=== PATIENT | male | born 1960 | race Caucasian/White ===

== ENCOUNTER 2018-04-15 12:30 | Observation (INO) | payer BC ==
[2018-04-15 13:31] LABS: Bilirubin Negative (Negative); Blood, Urine Negative (Negative); Clarity Clear (Clear); Glucose, Urine (Dipstick) Negative (Negative); Leukocyte Negative (Negative); Nitrite Negative (Negative); Protein, Urine (Dipstick) Negative (Neg-Trace); Specific Gravity, Urine 1.025 (1.005-1.030); Urobilinogen 0.2 mg/dL (0.2-1.0)
[2018-04-15 13:41] LABS: #Basophils 0.2 thou/uL (0.0-0.2); #Eosinphils 0.3 thou/uL (0.0-0.7); #Monocytes 1.3 thou/uL (0.11-0.59); #Neutrophils 6.9 thou/uL (1.40-6.50); %Basophils 1.5 % (0.0-1.0); %Eosinophils 2.7 % (0.0-10.0); %Lymphocytes 18.4 % (21.0-51.0); %Monocytes 12.4 % (0.0-10.0); %Neutrophils 65.1 % (42.0-75.0); Hemoglobin 16.9 g/dL (14.0-18.0); Mean Corpuscular HGB CONC 33.6 g/dL (32.0-36.0); Mean Corpuscular Hemoglobin 31.5 pg (27.0-31.0); Mean Corpuscular Volume 93.6 fL (78.0-98.0); Mean Platelet Volume 7.2 fL (7.4-10.4); Platelet Count 175 thou/uL (130-400); RBC Distribution Width 11.9 % (11.5-14.5); Red Blood Cell (RBC) Count 5.38 mill/uL (4.70-6.10); White Blood Cell (WBC) Count 10.7 thou/uL (4.8-10.8)
[2018-04-15 13:57] LABS: CKMB 0.7 ng/mL (0-6.6); Troponin I Less than 0.010 ng/mL (< 0.028)
[2018-04-15 13:58] LABS: ALT (SGPT) 11 U/L (8-55); AST (SGOT) 11 U/L (5-34); Albumin 4.2 g/dL (3.5-5.0); Alkaline Phosphatase 78 U/L (40-150); Anion Gap 12 mmol/L (10-20); BUN (Urea Nitrogen) 16 mg/dL (8.4-25.7); Bilirubin, Total 0.9 mg/dL (0.2-1.2); Calc. Creatinine Clearance 0 mL/min (70-130); Calcium 9.9 mg/dL (7.8-10.44); Carbon Dioxide 27 mmol/L (22-29); Chloride 104 mmol/L (98-107); Estimated GFR-MDRD 54; Glucose 92 mg/dL (70-105); Potassium 3.7 mmol/L (3.5-5.1); Protein, Total 7.2 g/dL (6.0-8.3); Sodium 139 mmol/L (136-145)
--- NOTE | 2018-04-15 14:11 | RAD ---
CHEST RADIOGRAPH SINGLE VIEW: History: Altered mental status. Comparison: 09-03-05 FINDINGS: There is no evidence of lobar consolidation, effusion, or discrete pneumothorax. Cardiomediastinal si lhouette is accentuated by portable technique. IMPRESSION: No focal consolidation. POS: TPC
--- NOTE | 2018-04-15 14:22 | CT ---
CT BRAIN WITHOUT CONTRAST: HISTORY: Altered mental status. COMPARISON: 06/01/2015 FINDINGS: No evidence of acute infarct, hemorrhage, midline shift, or abnormal extraaxial fluid collection is s een. The sellar/suprasellar mass seen on the exam of 06/01/2015 has been removed in the interim. Th ere is mucosal disease in the sphenoid sinuses. The ventricular size is appropriate, and the basilar cisterns are patent. The bony calvarium is intact. IMPRESSION: No CT evidence of acute intracranial process. POS: IKE
[2018-04-15 16:31] VITALS: BMI 28.5
[2018-04-15] MEDS ORDERED: Acetaminophen 325 MG TAB PO PRN (17:41)
[2018-04-15] MEDS ORDERED: Melatonin 3 MG TAB PO SCH (22:00)
--- NOTE | 2018-04-16 00:48 | HP ---
CHIEF COMPLAINT: Incomplete expressive aphasia. HISTORY: This patient is a 58-year-old male with significant past medical history notable for prior pituitary macroadenoma requiring transsphenoidal resection about 3 years ago. The patient also was a real estate leasing agent for many years and has subsequently developed some PTSD. The patient reports that he tends to have recurring images of police breaking into his door with him being on the receiving end o f that as that is what he did for many years as a real estate leasing agent. He has been followed by a psycholog ist and a psychiatrist by the name of Dr. Weinberg. He recently reported these symptoms and was st arted on Risperdal about 5 days ago which was a Friday. The patient took one that night and states h e did not remember much after about an hour. Apparently, he was running down the road naked, was libertad ke during the night, yelling at his home. He subsequently reported this back to Dr. Weinberg, who stopped the medication. The patient was in a group meeting today and was trying to speak and had sig nificant expressive aphasia. The patient does report that he has had difficulty with mild expressive aphasia since his original transsphenoidal pituitary macroadenoma resection 3 years ago. This, haines tamra, was worse than usual. He denies any other associated symptoms. He was told by someone at the [facility] that he needed to come to the hospital. He called his girlfriend who took him to [facility]. There, the patient underwent workup including CT scan of the brain w hich was unremarkable for any acute findings. They subsequently called his psychiatrist who really w anted him to be admitted. PAST MEDICAL HISTORY: Notable for hypertension, PTSD. PAST SURGICAL HISTORY: Knee surgery, colon resection secondary to perforation, multiple skin cancer lesions removed from his face including a large one from the left lower lip and he had the transsphen oidal pituitary macroadenoma resection. SOCIAL HISTORY: The patient quit smoking about 12 years ago. He denies alcohol or drugs. He is not , but has a serious girlfriend named Claribel. Claribel would be his surrogate decision maker sh ould the need become necessary. He is FULL CODE. ALLERGIES: None. CURRENT MEDICATIONS: Potassium 10 mEq daily, Imitrex p.r.n., Maxalt p.r.n., Phenergan p.r.n., Effexo r XR 300 mg every day, omeprazole 40 mg every day, Ambien 10 mg at bedtime, Cozaar 50 mg every day, TriCor 145 every day, Coreg 25 b.i.d., amitriptyline 100 at bedtime, hydrocortisone 5 mg p.o. b.i.d., and topiramate 150 mg every day. PHYSICAL EXAMINATION: VITAL SIGNS: Temperature 97.5, pulse 81, respirations 20, O2 saturation 94% on room air, BP 179/97. GENERAL APPEARANCE: Age appropriate male. He is in no distress. He is awake, alert, oriented, plea dayana, cooperative. HEENT: PERRL. No OP lesions. NECK: Supple and symmetric. CARDIOVASCULAR: Regular rate and rhythm without murmurs, gallops or rubs. LUNGS: Clear to auscultation bilaterally with good chest wall expansion and air exchange. ABDOMEN: Soft, nontender, nondistended, positive bowel sounds, no masses, no organomegaly. EXTREMITIES: Warm and dry with no cyanosis, clubbing or edema. NEUROLOGIC: The patient does occasionally stumble when trying to speak too fast and gets frozen with his speech, but is able to stop, slow down and redirect his speech and be very appropriate. He has a normal cranial nerve function, normal peripheral strength and function with no localization. He ap pears to have normal cerebellar function. A CT of the brain shows the prior sellar mass excision, but no acute findings. Chest x-ray is negati ve. IMPRESSION AND PLAN: 1. Expressive aphasia, possibly an exacerbation of the patient's chronic expressive aphasia secondar y to his prior transsphenoidal pituitary macroadenoma resection exacerbations likely brought on by e risperidone, which has caused him some significant neuropsychiatric side effects. We will continue to monitor the patient here on telemetry. We will get an echocardiogram, check his carotid Dopplers . We will reassess him tomorrow. May need to talk to Dr. Parker who did his prior surgery and ma amira sure we will need to do an MRI to make sure there is nothing new going on in the area of the pitui tary. 2. Hypertension. We will continue with the patient's usual home medications including the losartan and Coreg. 3. Posttraumatic stress disorder. Continue his usual home medication regimen. 4. The patient has hyperlipidemia secondary to his medication regimen, which includes a TriCor. We will continue with that.
[2018-04-16 06:15] LABS: #Basophils 0.1 thou/uL (0.0-0.2); #Eosinphils 0.3 thou/uL (0.0-0.7); #Lymphocytes 1.8 thou/uL (1.20-3.40); #Monocytes 1.1 thou/uL (0.11-0.59); #Neutrophils 5.1 thou/uL (1.40-6.50); %Eosinophils 3.8 % (0.0-10.0); %Lymphocytes 21.9 % (21.0-51.0); %Monocytes 12.6 % (0.0-10.0); %Neutrophils 60.7 % (42.0-75.0); Hemoglobin 16.4 g/dL (14.0-18.0); Mean Corpuscular HGB CONC 31.6 g/dL (32.0-36.0); Mean Corpuscular Hemoglobin 31.2 pg (27.0-31.0); Mean Corpuscular Volume 98.5 fL (78.0-98.0); Mean Platelet Volume 6.8 fL (7.4-10.4); Platelet Count 240 thou/uL (130-400); RBC Distribution Width 12.2 % (11.5-14.5); Red Blood Cell (RBC) Count 5.27 mill/uL (4.70-6.10); White Blood Cell (WBC) Count 8.4 thou/uL (4.8-10.8)
[2018-04-16 06:16] LABS: Anion Gap 11 mmol/L (10-20); BUN (Urea Nitrogen) 13 mg/dL (8.4-25.7); Calc. Creatinine Clearance 103 mL/min (70-130); Calcium 9.2 mg/dL (7.8-10.44); Carbon Dioxide 24 mmol/L (22-29); Chloride 104 mmol/L (98-107); Estimated GFR-MDRD 67; Glucose 95 mg/dL (70-105); Potassium 3.4 mmol/L (3.5-5.1); Sodium 136 mmol/L (136-145)
[2018-04-16] MEDS ORDERED: Potassium Chloride 10 MEQ TAB PO SCH (11:15)
[2018-04-16] MEDS ORDERED: Venlafaxine HCl XR 150 MG CAP PO SCH (11:15)
[2018-04-16] MEDS ORDERED: Carvedilol 25 MG TAB PO SCH ×2 (11:15→21:00)
[2018-04-16] MEDS ORDERED: Losartan 25 MG TAB PO SCH (11:15)
[2018-04-16] MEDS ORDERED: Hydrocortisone 10 mg Tablet PO SCH ×2 (11:15→21:00)
--- NOTE | 2018-04-16 12:27 | ULT ---
BILATERAL CAROTID DUPLEX ULTRASOUND: DATE: 04/16/18 HISTORY: 58-year-old male with TIA. FINDINGS: There is a small amount of plaque formation in the left common carotid artery. The peak systolic velocity in the right ICA measures 67 cm/second with an end-diastolic velocity of 2 5 cm/second and a systolic ratio of 0.91. The peak systolic velocity in the left ICA measures 68 cm/second with an end-diastolic velocity of 26 cm/second and a systolic ratio of 0.63. Flow in both vertebral arteries remains antegrade. IMPRESSION: No evidence of hemodynamically significant stenosis. POS: IKE
[2018-04-16 16:03] VITALS: BP 142/84; TEMP 98.6
[2018-04-16] MEDS ORDERED: Amitriptyline HCl 100 MG TAB PO SCH (21:00)
[2018-04-17] MEDS ORDERED: Potassium Chloride 10 MEQ TAB PO SCH (09:00)
[2018-04-17] MEDS ORDERED: TOPIRAMATE 150 MG PO SCH (09:00)
[2018-04-17] MEDS ORDERED: Losartan 25 MG TAB PO SCH (09:00)
[2018-04-17] MEDS ORDERED: Venlafaxine HCl XR 150 MG CAP PO SCH (09:00)
[2018-04-17] MEDS ORDERED: Fenofibrate Nanocrystallized 145 MG TAB PO SCH (09:00)
--- NOTE | 2018-04-17 14:49 | DIS ---
DATE OF ADMISSION: 04/15/2018 DATE OF DISCHARGE: 04/16/2018 DISCHARGE DIAGNOSES: 1. Expressive aphasia. 2. History of adverse reaction to medication. 3. Post-traumatic stress disorder. 4. History of pituitary macroadenoma, status post transsphenoidal excision. 5. Hypertension. 6. History of hyperlipidemia. HOSPITAL COURSE: The patient is a 58-year-old male who has a history of PTSD who is being treated by a psychologist and a psychiatrist. He was started on Risperdal after having some worsening of his P TSD symptoms. Subsequent to that, the patient had significant delirium and amnestic activity. He wa s seen again by his psychiatrist and his medications were discontinued. However, the following day, the patient was at a group meeting and when attempting to talk was having some problems with expressi ve aphasia. The patient reported that he had had some minor problems with that since he has had his pituitary macroadenoma extracted transsphenoidally. This, however, was worse than those symptoms. Paramjit stern called his psychiatrist and was referred to the emergency department. His workup there appeared to be unremarkable; however, she was concerned enough that she would prefer to have him admitted to the hospital. HOSPITAL COURSE: The patient's neurologic exam was largely unremarkable other than very minor word f inding difficulties and expressive aphasia at times, which was overcome when the patient would slow d own and speak more clearly. He had a CT scan of the brain that showed the prior sellar mass excision but nothing new. Labs were unremarkable. He was on telemetry, had no significant telemetry finding s. He had a carotid Doppler study which revealed no occlusive disease. He also had an echocardiogra m; however, the patient was completely back to his baseline and he and I both felt confident that thi s was residual effect from the Risperdal. With that, the patient was felt to be stable for discharge . PHYSICAL EXAMINATION: VITAL SIGNS: Temperature was 98.6, pulse 91, respirations 16, O2 sat 92% on room air, BP was 142/84. GENERAL: He was awake, alert, oriented, pleasant, cooperative. HEART: Regular rate and rhythm. LUNGS: Clear bilaterally. ABDOMEN: Soft, nontender, nondistended. Positive bowel sounds. EXTREMITIES: Warm and dry. NEUROLOGIC: The patient was intact with no focal deficits other than occasional mild stumbling over his words. He had been evaluated by speech therapy and recommended ongoing outpatient speech therapy . DISPOSITION: The patient is discharged to home. His activity is as tolerated. He has no dietary re strictions. DISCHARGE MEDICATIONS: He will be on his usual home medications including potassium, Imitrex, Maxalt , Phenergan, Effexor XR, omeprazole, Ambien, Cozaar, TriCor, carvedilol, Elavil, hydrocortisone, and Qudexy/topiramate XR. He is to follow up with Dr. Triston Genao in 7 days as well as a psychiatrist . He can return to the emergency department should he have any problems prior to that time. Reassur ed the patient that I would call him if anything abnormal showed up on his echocardiogram which did n ot. His EF was 60-65%, was only grade I diastolic dysfunction.
== END 2018-04-16 18:04 | disposition home or self-care (01) ==
LOC: SCSER 12:30 → 2SE 16:26
PROVIDERS: ADMIT Internal Medicine; ATTEND Internal Medicine
DX: R47.01 Aphasia (principal); F43.10 Post-traumatic stress disorder, unspecified; I10 Essential (primary) hypertension; E78.5 Hyperlipidemia, unspecified; Z86.011 Personal history of benign neoplasm of the brain; Z87.891 Personal history of nicotine dependence; Z79.52 Long term (current) use of systemic steroids; Z79.899 Other long term (current) drug therapy; Z90.49 Acquired absence of other specified parts of digestive tract; Z98.890 Other specified postprocedural states
CPT/HCPCS: 36415; 70450; 71045; 80048; 80053; 81003; 82553; 84484; 85025; 93005; 93306; 93880; G0378; G9165-GN-CK; G9166-GN-CJ

== ENCOUNTER 2018-06-26 10:03 | Outpatient (CLI) | payer BC, MEDICARE ==
--- NOTE | 2018-06-26 13:24 | MRI ---
MRI BRAIN WITH AND WITHOUT CONTRAST: INDICATIONS: Migraine with aura, intractable. FINDINGS: The ventricular system is normal in size. There is mild chronic microvascular ischemic disease of th e cerebral white matter. No evidence of acute territorial infarction or intracranial hemorrhagic lele ceptibility. Post surgical change of the sella is again demonstrated, demonstrating a partially empt y sella appearance. No interval mass recurrence within the sella turcica is demonstrated. There is no pathologic intraaxial enhancement. Opacification of the sphenoid sinus is present. IMPRESSION: 1. Postsurgical findings of the sella are again demonstrated. 2. No acute intracranial abnormalities. 3. Mild chronic microvascular ischemic disease. POS: TPC
== END 2018-06-26 10:04 | disposition home or self-care (01) ==
LOC: SCSMRI 10:03
PROVIDERS: ATTEND Nurse Practitioner Acute Care
DX: G43.119 Migraine with aura, intractable, without status migrainosus (principal); I67.82 Cerebral ischemia; Z98.890 Other specified postprocedural states
CPT/HCPCS: 70553; 82565

== ENCOUNTER 2019-06-21 16:16 | Observation (INO) | payer BC, MEDICARE ==
[~2019-06-21 16:16] MED LIST: ISOVUE-370 76%-LOCM 1 ML ONE
[2019-06-21 16:39] LABS: #Basophils 0.1 thou/uL (0.0-0.2); #Eosinphils 0.4 thou/uL (0.0-0.7); #Lymphocytes 2.3 thou/uL (1.20-3.40); #Monocytes 0.8 thou/uL (0.11-0.59); #Neutrophils 5.9 thou/uL (1.40-6.50); %Basophils 0.9 % (0.0-1.0); %Eosinophils 3.9 % (0.0-10.0); %Lymphocytes 24.4 % (21.0-51.0); %Monocytes 8.3 % (0.0-10.0); %Neutrophils 62.5 % (42.0-75.0); Hemoglobin 17.8 g/dL (14.0-18.0); Mean Corpuscular HGB CONC 34.1 g/dL (32.0-36.0); Mean Corpuscular Hemoglobin 33.8 pg (27.0-31.0); Mean Platelet Volume 6.5 fL (7.4-10.4); Platelet Count 243 thou/uL (130-400); RBC Distribution Width 12.4 % (11.5-14.5); Red Blood Cell (RBC) Count 5.28 mill/uL (4.70-6.10); White Blood Cell (WBC) Count 9.5 thou/uL (4.8-10.8)
--- NOTE | 2019-06-21 16:54 | RAD ---
Chest AP view INDICATION: Chest pain COMPARISON: April 15, 2018 FINDINGS: Lungs:The lungs are clear Cardiac silhouette:The cardiomediastinal silhouette appears within normal limits. Pulmonary vasculature:Normal Pleural spaces:No pleural effusion or pneumothorax is demonstrated. Upper abdomen:No abnormality seen. Osseous structures: No acute osseous abnormality. Additional findings:None. IMPRESSION: No acute cardiopulmonary abnormality.
[2019-06-21 17:00] LABS: ALT (SGPT) 16 U/L (8-55); AST (SGOT) 16 U/L (5-34); Albumin 4.1 g/dL (3.5-5.0); Alkaline Phosphatase 84 U/L (40-110); Anion Gap 14 mmol/L (10-20); BUN (Urea Nitrogen) 13 mg/dL (8.4-25.7); CK (CPK) 37 U/L (30-200); Calc. Creatinine Clearance 0 mL/min (70-130); Calcium 9.2 mg/dL (7.8-10.44); Carbon Dioxide 24 mmol/L (22-29); Chloride 102 mmol/L (98-107); Estimated GFR-MDRD 51; Globulin 2.8 g/dL (2.4-3.5); Glucose 112 mg/dL (70-105); Potassium 3.7 mmol/L (3.5-5.1); Protein, Total 6.9 g/dL (6.0-8.3); Sodium 136 mmol/L (136-145)
[2019-06-21] MEDS ORDERED: Aspirin Chewable 81 MG TAB ONE (17:26)
[2019-06-21] MEDS ORDERED: Nitroglycerin 2% Ointment 1 INCH/1 GM Packet ONE (17:26)
[2019-06-21] MEDS ORDERED: Morphine 4 MG/ML VIAL ONE (18:40)
[2019-06-21] MEDS ORDERED: Pantoprazole 40 MG VIAL ONE (18:40)
[2019-06-21] MEDS ORDERED: Nitroglycerin 0.4 MG TAB 1 EACH ONE (18:40)
[2019-06-21 19:55] LABS: Troponin I 0.016 ng/mL (< 0.028)
[2019-06-21] MEDS ORDERED: Acetaminophen 325 MG TAB PO PRN (20:35)
[2019-06-21] MEDS ORDERED: Acetaminophen 650 MG Suppository PR PRN (20:35)
[2019-06-21] MEDS ORDERED: Ondansetron PF 4 MG/2 ML Vial IVP PRN (20:35)
[2019-06-21] MEDS ORDERED: Ondansetron ODT 4 MG TAB PO PRN (20:35)
[2019-06-21] MEDS ORDERED: Famotidine/PF 20 mg/2ml Vial SLOW IVP SCH (21:00)
[2019-06-21 21:04] LABS: Lactic Acid 1.1 mmol/L (0.5-2.2)
[2019-06-21] MEDS ORDERED: Sodium Chloride 0.9% 1,000 ML IV SCH (21:15)
[2019-06-21 21:26] VITALS: BMI 30.1
--- NOTE | 2019-06-21 21:28 | CT ---
Exam: CT angiogram of the chest HISTORY: Shortness of breath. Chest pain. Symptoms since started one week ago. COMPARISON: None TECHNIQUE: CT angiogram of the chest is performed in the axial plane. Three-dimensional reformatted i mages are submitted for interpretation FINDINGS: Mediastinum: No mass, lymphadenopathy or hematoma. HEART: Normal size. No significant pericardial fluid. Aorta: No aneurysm or dissection Upper solid abdominal viscera: No abnormality enhancement. Trachea and central bronchi: Patent Pleural spaces: No effusion Lung parenchyma: No masses or consolidation. Scarring in the right lower lobe, lingula and dependent atelectatic changes in the lung bases are noted. Mild emphysematous changes in the lung apices. Pneumothorax: None Osseous structures: No lytic or blastic lesions Pulmonary arteries: Adequate contrast opacification pulmonary arterial system to the level of segment al arteries. No filling defect to suggest pulmonary embolism IMPRESSION: 1. No evidence of pulmonary artery embolism to the level of segmental arteries.
--- NOTE | 2019-06-21 21:45 | HP ---
TIME OF ASSESSMENT: 1999. CHIEF COMPLAINT: Midsternal chest pressure. HISTORY OF PRESENT ILLNESS: Mr. Hough is a pleasant 59-year-old gentleman with no known past medical history, who states he first developed pressure in the center of his chest one week ago, which he states was intermittent until this past Friday when it became constant. The patient states it has been at a level of 5/10 in severity and nonradiating. Does not seem to be made worse by anything in particular, but states his activity level has been limited due to difficulty taking in deep breaths as that exacerbates his chest pressure. The patient in fact states that he is unable to take a deep breath even if he wants to and states he feels like something is limiting his chest from expanding. Denies any recent cough or hemoptysis. No recent fevers or chills. Has not experienced any symptoms like this in the past. Has not had any associated diaphoresis, nausea, vomiting, lightheadedness, or dizziness. Denies any trauma. He last took a flight in March 2019 to [place]. Since then, he has not had any long car rides or long flights. Denies any lower leg swelling or edema. All other review of systems are negative. ED COURSE: In the emergency department, the patient underwent an EKG which showed sinus tachycardia with a heart rate of 104 and PACs with aberrant conduction per EKG report. There were no ST changes or T-wave abnormalities. He underwent a chest x-ray, which showed no acute intrathoracic abnormalities. The patient was noted to have an elevated blood pressure on presentation with a systolic of 197. He was treated with Protonix 40 mg IV, 4 mg of morphine, given nitroglycerin sublingual as well as 1 inch of Nitro-Bid. The patient has received 324 mg of aspirin and 500 mL of normal saline. His blood pressure has improved and is now 136/94. Laboratory studies obtained included an initial troponin, which was negative. Second troponin is normal at 0.016. Initial troponin was 0.025. Remaining laboratory studies were notable for creatinine of 1.41 and GFR of 51, which appears essentially stable compared to previous lab work done. Full blood count unremarkable. LFTs normal. PAST MEDICAL HISTORY: 1. History of pituitary tumor. 2. Skin cancer. 3. Hypertension. 4. Adrenal gland deficit. 5. Chronic migraines. 6. Posttraumatic stress disorder. PAST SURGICAL HISTORY: 1. Colon resection. 2. Right knee surgery. 3. Pituitary tumor removal. SOCIAL HISTORY: The patient lives alone. Denies any alcohol abuse. No illicit drug use. Reports prior smoking history, but quit 15 years ago. FAMILY HISTORY: Reports a family history of cardiac disease. His father had multiple MIs and triple bypass. PHYSICAL EXAMINATION: GENERAL: The patient appears well developed, well nourished, is in no acute distress. VITAL SIGNS: Temperature 98.2, pulse 90, blood pressure 136/94, respirations 18, O2 saturation 95% on room air. HEENT: Normocephalic and atraumatic. Pupils are equal, round, reactive to light. Sclerae without icterus. Oropharynx is clear. NECK: Supple without lymphadenopathy. LUNGS: Clear to auscultation bilaterally without any wheezes, rales, or rhonchi. CARDIAC: Regular rate and rhythm. No chest wall tenderness on palpation. ABDOMEN: Soft, nontender, and nondistended. Normoactive bowel sounds present. No guarding or rigidity. No renal angle tenderness. EXTREMITIES: No lower leg swelling or edema. No calf tenderness. NEUROLOGIC: Alert and oriented x3. No neuro deficits on exam. SKIN: Warm and dry. INVESTIGATIONS: As mentioned above in HPI. IMPRESSION AND PLAN: Mr. Hough is a pleasant 59-year-old gentleman, who is being admitted for management of the following. 1. Acute coronary syndrome rule out. The patient continues with pressure in his chest causing also difficulty with his breathing on exertion due to inability to take full deep breaths. The patient without any cough or hemoptysis. However, given tachycardia and recent travel, we will obtain a CT angiogram to rule out pulmonary embolism. He has had an echocardiogram in the past in April 2018, which showed an EF of 60% to 65% with grade 1/3 diastolic dysfunction, trace MR and mild TR. We will go ahead and repeat this since it has been over a year since last echo. The patient with PACs on the EKG. He will remain on continuous cardiac monitoring. We will likely place a consultation to Cardiology. The patient states he has never undergone a stress test in the past. We will continue to trend troponins. We will add on a TSH and magnesium. We will add BNP as well to his laboratory studies. 2. Hypertension. Monitor blood pressure and resume home medications once verified. 3. GI prophylaxis. Famotidine 20 mg b.i.d. 4. Deep venous thrombosis prophylaxis. Pending CT angiogram. 5. Code status full. Surrogate decision maker is his daughter, Marifer Hough. The patient's case discussed with attending, who agrees with plan of care as described above. Job ID: [id number]
[2019-06-21] MEDS ORDERED: Rizatriptan Benzoate 10 MG MLT TAB PO PRN (23:42)
[2019-06-21] MEDS ORDERED: Zolpidem Tartrate 5 MG TAB PO PRN (23:42)
[2019-06-21] MEDS ORDERED: SUMAtriptan Succinate 6 MG/0.5 ML VIAL SC PRN (23:42)
[2019-06-21] MEDS ORDERED: Venlafaxine HCl XR 150 MG CAP PO SCH (23:45)
[2019-06-21] MEDS ORDERED: Carvedilol 6.25 MG TAB PO SCH (23:45)
[2019-06-22 04:40] LABS: #Basophils 0.1 thou/uL (0.0-0.2); #Eosinphils 0.3 thou/uL (0.0-0.7); #Lymphocytes 2.3 thou/uL (1.20-3.40); #Neutrophils 4.8 thou/uL (1.40-6.50); %Basophils 1.3 % (0.0-1.0); %Eosinophils 3.7 % (0.0-10.0); %Lymphocytes 26.9 % (21.0-51.0); %Monocytes 11.2 % (0.0-10.0); %Neutrophils 56.9 % (42.0-75.0); Hemoglobin 16.3 g/dL (14.0-18.0); Mean Corpuscular Hemoglobin 32.8 pg (27.0-31.0); Mean Corpuscular Volume 99.4 fL (78.0-98.0); Mean Platelet Volume 6.5 fL (7.4-10.4); Platelet Count 223 thou/uL (130-400); RBC Distribution Width 12.5 % (11.5-14.5); Red Blood Cell (RBC) Count 4.96 mill/uL (4.70-6.10); White Blood Cell (WBC) Count 8.5 thou/uL (4.8-10.8)
[2019-06-22 04:58] LABS: Anion Gap 11 mmol/L (10-20); BUN (Urea Nitrogen) 13 mg/dL (8.4-25.7); Calc. Creatinine Clearance 86 mL/min (70-130); Calcium 8.5 mg/dL (7.8-10.44); Carbon Dioxide 27 mmol/L (22-29); Chloride 104 mmol/L (98-107); Estimated GFR-MDRD 53; Glucose 88 mg/dL (70-105); Potassium 3.8 mmol/L (3.5-5.1); Sodium 138 mmol/L (136-145)
[2019-06-22] MEDS ORDERED: hydrALAZINE 25 MG TAB PO SCH (08:00)
[2019-06-22] MEDS ORDERED: Aripiprazole 10 MG TAB PO SCH (09:00)
[2019-06-22] MEDS ORDERED: Famotidine 20 MG TAB PO SCH (09:00)
[2019-06-22] MEDS ORDERED: Bupropion 150 MG XL TAB PO SCH (09:00)
[2019-06-22] MEDS ORDERED: Hydrocortisone 10 mg Tablet PO SCH ×2 (09:00→15:00)
[2019-06-22] MEDS ORDERED: Aspirin 81 mg Enteric Coated Tablet PO SCH (09:00)
[2019-06-22] MEDS: Carvedilol 25 MG TAB PO SCH ×2 (09:13→10:03)
[2019-06-22] MEDS ORDERED: Ketorolac Tromethamine 30 MG/ML VIAL IVP SCH (09:30)
[2019-06-22 11:34] VITALS: BP 172/102; TEMP 98.1
--- NOTE | 2019-06-22 14:41 | CON ---
DATE OF CONSULTATION: HISTORY OF PRESENT ILLNESS: The patient is a 59-year-old gentleman with a history of hypertension, who presents with a 1-week history of continuous midsternal chest discomfort. The patient has no previous cardiac history. He states about a month ago, he started developing midsternal discomfort. This has been a persistent pain. It seems to be clearly worse when he takes a deep breath. The patient has no previous history of chest discomfort. The patient's cardiac risk factor is hypertension and a family history of heart disease. PAST MEDICAL HISTORY: 1. Pituitary tumor. 2. PTSD. 3. Hypertension. 4. Migraine headaches. PAST SURGICAL HISTORY: Colon surgery and knee surgery. SOCIAL HISTORY: Former smoker. FAMILY HISTORY: Positive family history of heart disease. ALLERGIES: RISPERIDONE. MEDICATION ON ADMISSION: See nursing list. REVIEW OF SYSTEMS: Unremarkable. PHYSICAL EXAMINATION: GENERAL: Obese gentleman, in no acute distress. VITAL SIGNS: With a blood pressure 149/91. NECK: Showed no jugular venous distention. LUNGS: Clear to auscultation. HEART: Regular rate and rhythm. Normal S1 and S2. No murmurs. ABDOMEN: Distended. EXTREMITIES: Showed no edema. VASCULAR: Radial pulse 2+. LABORATORY DATA: Sodium 138, potassium 3.8, chloride 104, bicarbonate 27, BUN 13, creatinine 1.38, and glucose 88. Troponin was 0.02 and BNP less than 10. EKG is pending. Echocardiogram revealed normal left ventricular ejection fraction 55% to 60% with no significant valvular regurgitation. IMPRESSION AND PLAN: 1. Chest pain, atypical, probably secondary to pleurisy. 2. Hypertension. 3. Obesity. 4. Family history of coronary artery disease. This gentleman presents with atypical chest pain. He has had discomfort persistently for the past week, and his cardiac enzymes are unremarkable. From a cardiac standpoint, we will start the patient on Toradol and nonsteroidal medication. We will follow this patient with you through his hospitalization. Job ID: [id number] [facility]
[2019-06-22] MEDS ORDERED: Ibuprofen 600 MG TAB PO SCH (15:00)
[2019-06-22] MEDS ORDERED: Melatonin 3 MG TAB PO SCH (21:00)
[2019-06-22] MEDS ORDERED: Amitriptyline HCl 25 MG TAB PO SCH (21:00)
[2019-06-22] MEDS ORDERED: Venlafaxine HCl XR 150 MG CAP PO SCH (21:00)
--- NOTE | 2019-06-23 02:35 | DIS ---
DATE OF ADMISSION: 06/21/2019 DATE OF DISCHARGE: 06/22/2019 DISCHARGE DIAGNOSES: 1. Chest pain, suspected musculoskeletal in origin. 2. Hypertension, labile. 3. Pituitary macroadenoma, status post excision. 4. Posttraumatic stress disorder. CONSULTATIONS: Dr. Morales with Cardiology Service. PERTINENT LABORATORY AND X-RAY FINDINGS: Creatinine ranged between 1.38 to 1.41. Estimated GFR ranged between 51 to 53. Lactic acid level 1.1. Magnesium level 2.0. Troponin I negative x3. BNP less than 10. CBC showed an MCV of 99. CT angiogram of the chest dated 06/21/2019 showed no evidence for pulmonary embolus. Portable chest x-ray dated 06/21/2019 showed no acute cardiopulmonary process. 2D transthoracic echocardiogram dated 06/22/2019 showed ejection fraction 55% to 60%. Diastolic dysfunction noted. Mild mitral and tricuspid regurgitation. HOSPITAL COURSE: The patient was observed on the telemetry unit after initially presenting with midsternal chest pressure and concern for acute coronary syndrome. Serial cardiac biomarkers were negative x3 and telemetry monitoring showed a sinus mechanism. The patient received anti-inflammatory medications including Toradol with complete resolution of his symptoms. The patient was evaluated by the Cardiology Service with recommendations for outpatient Cardiolite stress testing. Overall, the patient did remain clinically stable during the hospital course tolerating regular oral intake with labile hypertension noted. I have examined the patient at the time of discharge and discussed followup instructions. The patient verbalizes understanding and agreement, ready for discharge 06/22/2019. DISCHARGE MEDICATIONS: 1. Amitriptyline 50 mg p.o. at bedtime. 2. Aripiprazole 10 mg p.o. daily. 3. Bupropion extended release 300 mg p.o. q.a.m. 4. Carvedilol 12.5 mg p.o. b.i.d. 5. Hydralazine 25 mg p.o. t.i.d. 6. Hydrocortisone 20 mg p.o. q.a.m. and 10 mg p.o. at 1500. 7. Avapro 150 mg p.o. daily. 8. Magnesium oxide 500 mg p.o. at bedtime. 9. Melatonin extended release 10 mg p.o. at bedtime. 10. Omeprazole 40 mg p.o. daily. 11. Maxalt CHAMBER WALKER 10 mg p.o. daily. 12. Sildenafil 50 mg p.o. daily. 13. Imitrex 6 mg subcutaneously daily p.r.n. migraine headaches. 14. Testosterone 50 mg intramuscularly q.7 days. 15. Effexor XR 300 mg p.o. at bedtime. 16. Ambien 10 mg p.o. at bedtime p.r.n. 17. Motrin 600 mg p.o. t.i.d. p.r.n. FOLLOWUP: The patient may follow up with his primary care provider, Dr. Triston Genao. The patient will follow up with Dr. Spenser Morales within 1 to 2 weeks for outpatient cardiac stress testing. CONDITION ON DISCHARGE: Stable. ACTIVITY: Ad-nadira. DIET: Heart healthy. CODE STATUS: Full. DISPOSITION: To home, 06/22/2019. Job ID: [id number]
== END 2019-06-22 12:30 | disposition home or self-care (01) ==
LOC: ERS 16:16 → 2SW 18:59
PROVIDERS: ADMIT Hospitalist; ATTEND Hospitalist
DX: R07.89 Other chest pain (principal); I08.1 Rheumatic disorders of both mitral and tricuspid valves; I11.9 Hypertensive heart disease without heart failure; F43.10 Post-traumatic stress disorder, unspecified; E66.9 Obesity, unspecified; G43.909 Migraine, unspecified, not intractable, without status migrainosus; Z98.890 Other specified postprocedural states; Z79.899 Other long term (current) drug therapy; Z87.891 Personal history of nicotine dependence; Z82.49 Family history of ischemic heart disease and other diseases of the circulatory system; Z88.8 Allergy status to other drugs, medicaments and biological substances; Z68.30 Body mass index [BMI] 30.0-30.9, adult
CPT/HCPCS: 36415; 36416; 71045; 71275; 80048; 80053; 82550; 83605; 83735; 83880; 84484; 85025; 93005; 93306; 96361; 96372; 96374; 96375; C9113; G0378; J1885; J2270; J3030; Q9966; S0028